=== PATIENT | female | born 2000 | race Caucasian/White ===

== ENCOUNTER 2018-08-26 07:50 | Emergency (ER) | payer OTHER, MEDICAID ==
[~2018-08-26] VITALS: Ht 162.6 cm; Wt 69.9 kg
[2018-08-26 07:55] VITALS: BP 124/77; TEMP 98.7
[2018-08-26 08:06] LABS: COLLECTION METHOD CLEAN CATCH
[2018-08-26 08:17] LABS: MUCOUS Present /lpf; PH 5 (5-8); URINE APPEARANCE Cloudy; URINE BACTERIA None Seen /hpf; URINE BILIRUBIN Negative (NEGATIVE); URINE BLOOD 2+ (NEGATIVE); URINE COLOR Yellow; URINE GLUCOSE Negative (NEGATIVE); URINE KETONE Negative (NEGATIVE); URINE LEUKOCYTE ESTERASE 2+ (NEGATIVE); URINE NITRATE Negative (NEGATIVE); URINE PROTEIN(semi-quant) 2+ (NEGATIVE); URINE RBC >50 /hpf
[2018-08-26] MEDS ORDERED: CEFTIN500 MG PO (08:26)
[2018-08-26] MEDS ORDERED: PYRIDIUM200 M1 PO (08:26)
[2018-08-26 08:39] VITALS: PULSE 82
== END 2018-08-26 08:39 | disposition home or self-care (01) ==
LOC: COL.ER 07:50
PROVIDERS: Emergency Medicine
DX: N39.0 Urinary tract infection, site not specified (principal)